=== PATIENT | female | born 1980 | race Caucasian/White ===

== ENCOUNTER 2019-02-07 22:35 | Emergency (ER) | payer MEDICAID ==
[~2019-02-07] VITALS: Ht 154.9 cm; Wt 83.2 kg
[2019-02-07] MEDS ORDERED: SODIUM CHLORIDE 0.9% 1,000 ML IV ONE (23:15)
[2019-02-07] MEDS ORDERED: MethylPREDNISolone SOD SUCC 125 MG/2 ML VIAL IVP ONE (23:15)
[2019-02-07] MEDS ORDERED: DiphenhydrAMINE HCL 50 MG/ML VIAL IVP ONE (23:15)
[2019-02-08 01:26] VITALS: BP 134/82
== END 2019-02-08 01:32 | disposition home or self-care (01) ==
LOC: EMS 22:39
DX: T78.40XA Allergy, unspecified, initial encounter (principal); Z88.0 Allergy status to penicillin; Z88.1 Allergy status to other antibiotic agents; Z91.013 Allergy to seafood; X58.XXXA Exposure to other specified factors, initial encounter
CPT/HCPCS: 96374; 96375; 99283; J1200; J2930; J7030